=== PATIENT | male | born 1990 | race Caucasian/White ===

== ENCOUNTER 2017-12-11 17:30 | Emergency (ER) | payer BC, OTHER ==
--- NOTE | 2017-12-11 17:55 | EDM.PDOC ---
ED HPI GENERAL MEDICAL PROBLEM - General Chief Complaint: ENT Problem Time Seen by Provider: 12/11/17 17:46 Source of Information: Reports: Patient History Limitations: Reports: No Limitations - History of Present Illness INITIAL COMMENTS - FREE TEXT/NARRATIVE: Patient comes in to the emergency department tonight with complaints of six- month history of GERD type symptoms. Patient has been seen in the clinic on 2 or 3 different occasions related to this. Patient's had a full workup along with ultrasound completed of the neck- with negative findings. Patient was placed on a proton pump inhibitor and told to follow-up if necessary. He was also placed on Chantix to help stop smoking. Education was provided on things to discontinue from his diet to help reduce the acid reflux. Patient was to follow-up . He has not followed the diet and has not gone back to the clinic. It was advised that he may need to have a gastroenterology consult to evaluate if further scoping of the esophagus was necessary. Patient states his symptoms have not gotten any worse but it is bothersome and continues. The symptoms are worse in the morning and after he has been lying down for long periods of time or couple hours after he eats he notices it more when he's swallowing his saliva. Denies and choking sensation, SOB, Chest pain, N/V, diarrhea, or dark bloody stools. Onset: Sudden - Related Data Allergies Allergy/AdvReac Type Severity Reaction Status Date / Time Penicillins Allergy Cannot Verified 12/11/17 17:44 Remember Home Meds: Home Meds . [No Known Home Meds] 12/11/17 [History] ED ROS GENERAL - Review of Systems Review Of Systems: See Below Constitutional: Reports: No Symptoms HEENT: Reports: No Symptoms Respiratory: Reports: No Symptoms Cardiovascular: Reports: No Symptoms Endocrine: Reports: No Symptoms GI/Abdominal: Reports: No Symptoms Musculoskeletal: Reports: No Symptoms Skin: Reports: No Symptoms Neurological: Reports: No Symptoms ED EXAM, GI/ABD - Physical Exam Exam: See Below Exam Limited By: No Limitations General Appearance: Alert Ears: Normal External Exam, Normal Canal Nose: Normal Inspection, Normal Mucosa Throat/Mouth: Normal Inspection, Normal Lips, Normal Teeth, Normal Gums, Normal Oropharynx, Normal Voice, No Airway Compromise. No: Dysphagia, Inflammation, Perioral Cyanosis Head: Atraumatic, Normocephalic. No: Facial Swelling, Facial Tenderness Neck: Normal Inspection, Supple, Non-Tender, Full Range of Motion. No: Carotid Bruit, Limited Range of Motion, Lymphadenopathy (L), Lymphadenopathy (R), Tender Lateral, Tender Midline, Thyromegaly Respiratory/Chest: No Respiratory Distress, Lungs Clear, Normal Breath Sounds, No Accessory Muscle Use, Chest Non-Tender Cardiovascular: Normal Peripheral Pulses Course - Vital Signs Last Recorded V/S: Last Vital Signs Temp 37.0 C 12/11/17 17:44 Pulse 77 12/11/17 17:44 Resp 16 12/11/17 17:44 BP 148/76 H 12/11/17 17:44 Pulse Ox 99 12/11/17 17:44 Departure - Departure Time of Disposition: 18:05 Disposition: Home, Self-Care 01 Condition: Good Clinical Impression: GERD (gastroesophageal reflux disease) Qualifiers: Esophagitis presence: without esophagitis Qualified Code(s): K21.9 - Gastro- esophageal reflux disease without esophagitis - Discharge Information Referrals: [facility] [Outside] Additional Instructions: 1. Referred Pt to [facility] [phone] call to make an appointment. 2. Follow up with PCP 3. Continue to to PPI (Protonix) to help with gastric relux 4. Can sleep with the head elevated to help reduce the gastric influx back into the esophagus 5. Avoid smoking spicy foods or alcohol products 6. Caffeine or carbonated beverages may irritate the stomach that is advised to avoid them as well - Assessment/Plan Plan: 1. Pt is advised to follow up with PCP or a referral has been placed for pt to see gastroenterology since pt has been seen multiple times in the clinic and now ER with out resolving symptoms 2. Patient is educated and advised to avoid smoking, spicy foods, caffeine, or carbonated beverages 3. Patient was advised to continue taking his proton pump inhibitor until evaluated by program management professional or his PCP 4. Patient is also advised to increase his water intake
== END 2017-12-11 18:05 | disposition home or self-care (01) ==
LOC: VM.ED 17:30
DX: K21.9 Gastro-esophageal reflux disease without esophagitis (principal); Z88.0 Allergy status to penicillin
CPT/HCPCS: 99283

== ENCOUNTER 2023-01-19 18:32 | Emergency (ER) | payer OTHER ==
[2023-01-19] MEDS ORDERED: Sodium Chloride 0.9% 10 ML Syringe FLUSH PRN (18:40)
[2023-01-19 18:59] LABS: BASOPHILS PERCENT AUTO 0.2 % (0.2-1.2); EOSINOPHILS ABSOLUTE AUTO 0.1 x10^3/uL (0.0-0.5); EOSINOPHILS PERCENT AUTO 1.2 % (0.0-4.0); HEMATOCRIT 41.9 % (40.0-52.0); HEMOGLOBIN 14.5 g/dL (14.0-18.0); IMMATURE GRAN ABSOLUTE AUTO 0.05 x10^3/uL (0.00-0.07); LYMPHOCYTES PERCENT AUTO 16.9 % (25.0-50.0); MEAN CORPUSCULAR HEMOGLOBIN 31.1 pg (26.0-32.0); MEAN CORPUSCULAR HGB CONC 34.6 g/dL (32.0-36.0); MEAN CORPUSCULAR VOLUME 89.9 fL (78.0-93.0); MONOCYTES ABSOLUTE AUTO 0.9 x10^3/uL (0.0-0.8); MONOCYTES PERCENT AUTO 7.4 % (2.0-11.0); NEUTROPHILS ABSOLUTE AUTO 8.9 x10^3/uL (1.8-7.7); NEUTROPHILS PERCENT AUTO 73.9 % (50.0-80.0); PLATELET COUNT,PLT 139 x10^3/uL (130-400); RED BLOOD CELL COUNT 4.66 x10^6/uL (4.5-6.0)
[2023-01-19] MEDS: Ketorolac 30 MG/ML SDV IM ONE (19:13)
[2023-01-19 19:21] LABS: PTT,PARTIAL THROMBOPLSTIN TIME 27.9 SEC (23.6-33.6)
[2023-01-19 19:25] LABS: A/G RATIO 1.37; ALANINE AMINOTRANSFERASE,ALT 35 U/L (16-63); ALBUMIN 4.1 g/dL (3.4-5.0); ALKALINE PHOSPHATASE 67 U/L (46-116); ASPARTATE AMNIOTRANSFERASE,AST 17 U/L (15-37); BILIRUBIN TOTAL 0.3 mg/dL (0.2-1.0); BLOOD UREA NITROGEN,BUN 13 mg/dL (7-18); CALCIUM 9.3 mg/dL (8.5-10.1); CARBON DIOXIDE,CO2 26 mmol/L (21-32); CHLORIDE,CL 102 mmol/L (98-107); CREATININE 1.4 mg/dL (0.70-1.30); GLUCOSE RANDOM 118 mg/dL (70-99); MAGNESIUM 1.6 mg/dL (1.8-2.4); PHOSPHORUS 2.7 mg/dL (2.6-4.7); POTASSIUM,K 3.6 mmol/L (3.5-5.1); PRO B-TYPE NATRIUR PEPT,BNPPRO 52 pg/mL (<=125); PROTEIN TOTAL,TP 7.1 g/dL (6.4-8.2); SODIUM,NA 139 mmol/L (136-145); TSH ULTRASENSITIVE 2.788 uIU/mL (0.358-3.74)
[2023-01-19 19:26] LABS: ANION GAP 14.6 mmol/L (5-15); C-REACTIVE PROTEIN < 0.2 mg/dL (<=0.9); ESTIMATED GFR 69 mL/min (>=60)
[2023-01-19] MEDS: Take Home: predniSONE 20 MG, 2 Tab Pack PO ONE (20:33)
[2023-01-19] MEDS: Take Home: Naproxen 500 MG Tab, 4 Tab Pack PO ONE (20:33)
== END 2023-01-19 20:37 | disposition home or self-care (01) ==
LOC: VM.ED 18:32
DX: R07.89 Other chest pain (principal); F17.210 Nicotine dependence, cigarettes, uncomplicated; Z88.0 Allergy status to penicillin
CPT/HCPCS: 36415; 71045; 80053; 83735; 83880; 84100; 84443; 84484; 85025; 85610; 85730; 86140; 93005; 96372; 99284; 99285; A9270-GY; J1885; J7512